=== PATIENT | male | born 1995 | race Asian ===

== ENCOUNTER → 2016-08-28 | Outpatient (CLI) | payer OTHER ==
[~2016-08-28] MED LIST: IBUP800T23 PO; TRAM50 PO
[2016-08-28 13:27] LABS: ANION GAP 7 MEQ/L (5-15); AST (GOT) 38 U/L (15-37); BICARBONATE 25.8 MEQ/L (21.0-32.0); BLOOD UREA NITROGEN 22 MG/DL (7-18); CHLORIDE 105 MEQ/L (98-107); GLOMERULAR FILTRATION RATE 107 ML/MIN (>89); GLUCOSE,FASTING 77 MG/DL (74-99); POTASSIUM 4.3 MEQ/L (3.5-5.1); SODIUM (NA) 138 MEQ/L (136-145)
[2016-08-28 13:40] LABS: ALKALINE PHOSPHATASE 67 U/L (45-117); ALT (GPT) 111 U/L (12-78); HDL CHOLESTEROL 39.3 MG/DL (40.0-60.0); LDL CHOLESTEROL 88 MG/DL (0-99)
== END ==
LOC: PLAB 10:33
PROVIDERS: ATTEND Family Medicine
DX: E78.5 Hyperlipidemia, unspecified (principal)
CPT/HCPCS: 80053; 80061; 84443

== ENCOUNTER → 2016-11-14 | Outpatient (CLI) | payer OTHER ==
[2016-11-14 18:49] LABS: HEMOGLOBIN A1a 0.9 %; HEMOGLOBIN A1b 0.8 %; HEMOGLOBIN Ao 88.3 %; HEMOGLOBIN F 0.8 %; HEMOGLOBIN LA1C 1.8 %
== END ==
LOC: PLAB 14:37
PROVIDERS: ATTEND Family Medicine
DX: R79.89 Other specified abnormal findings of blood chemistry (principal)
CPT/HCPCS: 80074; 83036; 84443

== ENCOUNTER → 2017-08-08 | Outpatient (CLI) | payer OTHER ==
[2017-08-08 14:33] LABS: ALBUMIN 4.6 GM/DL (3.4-5.0); ALT (GPT) 39 U/L (12-78); AST (GOT) 21 U/L (15-37); BICARBONATE 24.2 MEQ/L (21.0-32.0); BLOOD UREA NITROGEN 18 MG/DL (7-18); CALCIUM 9.2 MG/DL (8.5-10.1); CHLORIDE 105 MEQ/L (98-107); CHOLESTEROL 176 MG/DL (120-200); CREATININE 0.98 MG/DL (0.60-1.30); GLOMERULAR FILTRATION RATE 95 ML/MIN (>89); GLUCOSE,FASTING 79 MG/DL (74-99); SODIUM (NA) 140 MEQ/L (136-145)
[2017-08-08 14:35] LABS: ALKALINE PHOSPHATASE 63 U/L (45-117); CHOLESTEROL/ HDL RATIO 5.48 RATIO; HDL CHOLESTEROL 32.1 MG/DL (40.0-60.0); TOTAL PROTEIN 8.3 GM/DL (6.4-8.2); TRIGLYCERIDES 450 MG/DL (42-150)
== END ==
LOC: PLAB 09:07
PROVIDERS: ATTEND Family Medicine
DX: E78.5 Hyperlipidemia, unspecified (principal)
CPT/HCPCS: 36415; 80053; 80061